=== PATIENT | male | born 1965 | race Caucasian/White ===

== ENCOUNTER → 2017-02-07 | Outpatient (CLI) | payer BC | LOC: RAD 07:19 | DX: R94.5 Abnormal results of liver function studies (principal); K76.89 Other specified diseases of liver ==

== ENCOUNTER → 2017-05-19 | Outpatient (CLI) | payer BC | LOC: RAD 07:05 | DX: R74.8 Abnormal levels of other serum enzymes (principal); K76.0 Fatty (change of) liver, not elsewhere classified ==

== ENCOUNTER → 2018-01-30 | Outpatient (CLI) | payer BC | LOC: RAD 10-30 08:24 | DX: K76.89 Other specified diseases of liver (principal) ==

== ENCOUNTER 2018-08-04 01:58 | Emergency (ER) | payer SELFPAY ==
[~2018-08-04] VITALS: Ht 190.5 cm; Wt 138.6 kg
[2018-08-04] MEDS ORDERED: MONODOX100 M1 PO (02:22)
[2018-08-04] MEDS ORDERED: ATARAX 10MG10 MG/TAB PO (02:23)
[2018-08-04] MEDS ORDERED: ZYRTEC10 M3 PO (02:23)
[2018-08-04] MEDS ORDERED: TRIAMCINOLONE AC0.13 TP (02:24)
[2018-08-04] MEDS ORDERED: SPECTAZOLE 1% C15 GM TP (02:24)
[2018-08-04] MEDS ORDERED: HYDROXYZINE HCL25 M1 PO (02:24)
[2018-08-04] MEDS ORDERED: ROSUVASTATIN CA20 MG PO (02:25)
[2018-08-04] MEDS ORDERED: OMEPRAZOLE40 MG PO (02:25)
[2018-08-04] MEDS ORDERED: TERBINAFINE250 MG PO (02:25)
[2018-08-04] MEDS ORDERED: PREDNISONE10 MG PO (07:29)
[2018-08-04] MEDS ORDERED: EPIPEN 2-PAK1 MG/ML MR (07:29)
[2018-08-04 07:48] VITALS: BP 138/82
== END 2018-08-04 07:45 | disposition home or self-care (01) ==
LOC: ED 01:58
DX: T78.3XXA Angioneurotic edema, initial encounter (principal); F41.9 Anxiety disorder, unspecified; F40.240 Claustrophobia; R73.03 Prediabetes; Z79.899 Other long term (current) drug therapy
CPT/HCPCS: J0171; J1200; J2930; J3490